=== PATIENT | female | born 1995 | race Caucasian/White ===

== ENCOUNTER 2022-06-15 19:48 | Emergency (ER) | payer BC ==
[~2022-06-15] VITALS: Ht 172.7 cm; Wt 63.5 kg
--- NOTE | 2022-06-15 21:35 | NUR ---
Patient walked to ER with steady gait. NAD noted
--- NOTE | 2022-06-15 21:41 | NUR ---
Patient taken to CT
[2022-06-15 21:44] LABS: HEMATOCRIT 40.6 % (31.2-41.9); MEAN CORPUSCULAR VOLUME 87.9 fL (75.5-95.3); PLATELET COUNT (AUTO) 236 K/uL (179-408)
--- NOTE | 2022-06-15 21:49 | NUR ---
Patient back from CT
--- NOTE | 2022-06-15 21:50 | NUR ---
Dr Gleason at bedside MSE in progress
[2022-06-15 21:57] LABS: BILIRUBIN,DIRECT 0.1 mg/dL (0.0-0.2); BILIRUBIN,TOTAL 0.4 mg/dL (0.2-1.0); CREATININE 0.9 mg/dL (0.6-1.3); POTASSIUM 3.6 mmol/L (3.5-5.1); TOTAL PROTEIN, SERUM 7.8 g/dL (6.4-8.2)
[2022-06-15 21:59] LABS: *URINE HCG, QUAL NEG (NEGATIVE)
[2022-06-15 22:28] LABS: *AMPHETAMINE, URINE NEGATIVE (NEGATIVE); *CANNABINOID, URINE NEGATIVE (NEGATIVE); *COCCAINE, URINE NEGATIVE (NEGATIVE); *PHENCYCLIDINE SCREEN,URINE NEGATIVE (NEGATIVE)
--- NOTE | 2022-06-15 23:14 | NUR ---
Patient does not wish to proceed with medical care recommended by Dr. Gleason. Patient given information related to possible complications, up to and including , which could occur as a result of leaving the hospital at this time. Patient verbalizes understanding of risks involved due to leaving against medical advice. Patient has signed AMA form.
[2022-06-15 23:15] VITALS: BP 128/78
== END 2022-06-15 23:16 | disposition left against medical advice (07) ==
LOC: ER 20:03
DX: R20.0 Anesthesia of skin (principal); R51.9 Headache, unspecified; Z20.822 Contact with and (suspected) exposure to COVID-19; Z53.29 Procedure and treatment not carried out because of patient's decision for other reasons; R94.31 Abnormal electrocardiogram [ECG] [EKG]
CPT/HCPCS: 36415; 70450; 84703; 85025; 85730; 93005